=== PATIENT | female | born 1995 | race Caucasian/White ===

== ENCOUNTER 2019-03-01 03:44 | Inpatient (IN) ==
[2019-03-01] MEDS ORDERED: *HR* Nalbuphine 10 MG/ML AMPUL IVP PRN (04:17)
[2019-03-01] MEDS ORDERED: Famotidine 20 MG/2 ML VIAL IVP PRN (04:17)
[2019-03-01] MEDS ORDERED: Naloxone 0.4 MG/ML INJ IVP PRN (04:17)
[2019-03-01] MEDS ORDERED: Lidocaine 1% 20 ML MDV INFILT PRN (04:17)
[2019-03-01] MEDS ORDERED: Metoclopramide 10 MG/2 ML VIAL IVP PRN (04:17)
[2019-03-01] MEDS ORDERED: Penicillin G Potassium 5,000,000 UNIT in 0.9 % Sodium Chloride Mini Bag 100 ML IVPB ONE (04:23)
[2019-03-01] MEDS ORDERED: Ringers Solution, Lactated 1,000 ML ONE ×4 (04:34→23:19)
[2019-03-01 04:46] LABS: Basophils # 0.1 K/mcL (0.0-0.2); Basophils % 0.9 %; Eosinophils # 0.1 K/mcL (0.0-0.6); Eosinophils % 1.1 %; Hematocrit 39.4 % (35.3-44.9); Hemoglobin 13.5 g/dL (11.5-15.4); Immature Granulocytes % 0.6 % (0-4); Lymphocytes # 1.7 K/mcL (0.6-4.6); Mean Corpuscular HGB Conc 34.3 g/dL (31.6-35.5); Mean Corpuscular Hemoglobin 29.6 pg (28.0-33.3); Mean Corpuscular Volume 86.4 fL (83.0-100.0); Monocytes # 0.8 K/mcL (0.0-1.3); Monocytes % 10.8 %; Neutrophils # 4.3 K/mcL (1.6-8.9); Platelet Count 221 K/mcL (140-400); Red Blood Count 4.56 M/mcL (3.82-4.97); Red Cell Distribution Width 13.1 % (11.5-14.5); Segmented Neutrophils % 61.6 %
[2019-03-01 04:53] LABS: Amphetamine Screen,Urine Negative ng/mL (Cutoff=1000); Barbiturate Screen,Urine Negative ng/mL (Cutoff=200); Benzodiazepines Screen,Urine Negative ng/mL (Cutoff=200); Cannabinoid Screen,Urine Negative ng/mL (Cutoff = 50); Cocaine Screen,Urine Negative ng/mL (Cutoff= 300); Opiate Screen,Urine Negative ng/mL (Cutoff=300); Phencyclidine Screen,Urine Negative ng/mL (Cutoff=25)
[2019-03-01] MEDS: miSOPROStoL 100 MCG TABLET PO SCH ×2 (06:06→11:02)
[2019-03-01] MEDS ORDERED: D5% in 0.45% NACL 1,000 ML IVC SCH (06:30)
[2019-03-01] MEDS: Penicillin G Potassium 2,500,000 UNIT in 0.9 % Sodium Chloride 100 ML IVPB SCH ×4 (09:02→21:40)
[2019-03-01] MEDS ORDERED: Acetaminophen 325 MG TABLET PO PRN (13:23)
[2019-03-01] MEDS ORDERED: Oxytocin 20 units/ LR 1000 mL 20 UNIT/1,000 ML BAG IVC SCH (15:00)
[2019-03-01] MEDS ORDERED: Epidural Premix (fent/bupiv) 110 ML EP ONE (19:22)
[2019-03-01] MEDS ORDERED: Epidural Premix (fent/bupiv) 110 ML EP SCH (19:30)
[2019-03-02] MEDS ORDERED: ceFAZolin 2,000 MG in 0.9 % Sodium Chloride 100 ML IVP ONE (00:08)
[2019-03-02] MEDS ORDERED: MetroNIDAZOLE 500 MG/100 ML 500 MG/100 ML BAG IVPB ONE (00:09)
[2019-03-02] MEDS ORDERED: Ondansetron 4 MG/2 ML VIAL IVP PRN ×3 (00:11→04:52)
[2019-03-02] MEDS ORDERED: Ibuprofen 600 MG TABLET PO PRN (00:11)
[2019-03-02] MEDS ORDERED: *HR* OxyCODONE Immed Rel 5 MG TABLET PO PRN (00:11)
[2019-03-02] MEDS ORDERED: Sennosides 8.6 MG TABLET PO PRN (00:11)
[2019-03-02] MEDS ORDERED: Simethicone 80 MG TAB.CHEW PO PRN ×2 (00:11→04:52)
[2019-03-02] MEDS ORDERED: Oxytocin 20 units/ LR 1000 mL 20 UNIT/1,000 ML BAG IVC SCH ×2 (00:15→04:52)
[2019-03-02] MEDS ORDERED: Naloxone 0.4 MG/ML INJ IVP PRN (00:36)
[2019-03-02] MEDS ORDERED: *HR* OxyCODONE/APAP 5/325 TABLET PO PRN (00:36)
[2019-03-02] MEDS ORDERED: Acetaminophen IV 1,000 MG/100 ML INFUS..BTL IVPB ONE (00:37)
[2019-03-02] MEDS ORDERED: Ringers Solution, Lactated 1,000 ML ONE ×3 (00:40→01:47)
[2019-03-02] MEDS ORDERED: Lidocaine/EPI 1:200k 2% PF 20 ML VIAL ONE (00:47)
[2019-03-02] MEDS ORDERED: Ondansetron 4 MG/2 ML VIAL ONE (00:57)
[2019-03-02] MEDS ORDERED: *HR* Oxytocin 10 UNIT/ML VIAL IM ONE ×2 (00:57→01:47)
[2019-03-02] MEDS ORDERED: Dexamethasone 4 MG/ML VIAL ONE (00:57)
[2019-03-02] MEDS ORDERED: Ketorolac 30 MG/ML VIAL ONE (00:57)
[2019-03-02] MEDS ORDERED: *HR* FentaNYL (PF) 100 MCG/2 ML VIAL ONE (01:01)
[2019-03-02] MEDS ORDERED: *HR* Succinylcholine 200 MG/10 ML VIAL IVP ONE (01:09)
[2019-03-02] MEDS ORDERED: Propofol 500 MG/50 ML INFUS..BTL ONE (01:15)
[2019-03-02] MEDS ORDERED: *HR* HYDROmorphone (PF) 1 MG/ML SYRINGE IVP PRN (01:22)
[2019-03-02] MEDS ORDERED: *HR* Morphine Sulfate/PF 10 MG/10 ML AMPUL ONE (01:39)
[2019-03-02] MEDS ORDERED: Rho Immune Globulin 1,500 UNIT SYRINGE IM ONE (04:52)
[2019-03-02] MEDS: Ibuprofen 600 MG TABLET PO SCH ×3 (05:30→20:05)
[2019-03-02] MEDS: Acetaminophen 325 MG TABLET PO SCH ×3 (05:30→20:04)
[2019-03-02] MEDS: metroNIDAZOLE 500 MG TABLET PO SCH ×2 (08:46→20:06)
[2019-03-02] MEDS: cephALEXin 500 MG CAPSULE PO SCH ×2 (08:47→20:06)
[2019-03-02] MEDS: Prenatal Vit/FA 1 EACH TABLET PO SCH (08:47)
[2019-03-02] MEDS ORDERED: Prenatal Vit/FA 1 EACH TABLET PO SCH (09:00)
[2019-03-02] MEDS ORDERED: metroNIDAZOLE 500 MG TABLET PO SCH (09:00)
[2019-03-02] MEDS ORDERED: cephALEXin 500 MG CAPSULE PO SCH (09:00)
[2019-03-03] MEDS: Acetaminophen 325 MG TABLET PO SCH ×2 (02:54→08:56)
[2019-03-03] MEDS: Ibuprofen 600 MG TABLET PO SCH ×2 (02:55→08:55)
[2019-03-03 08:18] VITALS: BP 111/81
[2019-03-03] MEDS: cephALEXin 500 MG CAPSULE PO SCH (08:55)
[2019-03-03] MEDS: metroNIDAZOLE 500 MG TABLET PO SCH (08:55)
[2019-03-03] MEDS: Prenatal Vit/FA 1 EACH TABLET PO SCH (08:56)
== END 2019-03-03 15:00 | disposition home or self-care (01) | DRG 788 ==
LOC: 1NENULAB 03:44 → 1NENUOBS 03-02 04:52
PROVIDERS: ADMIT Obstetrics & Gynecology; ATTEND Obstetrics & Gynecology

== ENCOUNTER 2021-08-23 04:54 | Inpatient (IN) ==
[2021-08-23] MEDS ORDERED: Famotidine 20 MG/2 ML VIAL IVP ONE (06:00)
[2021-08-23] MEDS ORDERED: CeFAZolin Syr 3,000MG/30 ML 3,000 MG/30 ML SYRINGE IVPB ONE (06:00)
[2021-08-23] MEDS ORDERED: Oxytocin 30 UNIT/503 ML BAG IVC SCH ×2 (06:00→09:00)
[2021-08-23] MEDS ORDERED: Metoclopramide 10 MG/2 ML VIAL IVP ONE (06:00)
[2021-08-23 06:24] LABS: Basophils # 0.1 K/mcL (0.0-0.2); Basophils % 0.8 %; Eosinophils # 0.1 K/mcL (0.0-0.6); Eosinophils % 1.5 %; Hematocrit 36.3 % (35.3-44.9); Hemoglobin 11.8 g/dL (11.5-15.4); Immature Granulocytes % 0.7 % (0-4); Lymphocytes # 1.9 K/mcL (0.6-4.6); Lymphocytes % 30.4 %; Mean Corpuscular HGB Conc 32.5 g/dL (31.6-35.5); Mean Corpuscular Hemoglobin 26.3 pg (28.0-33.3); Mean Corpuscular Volume 80.8 fL (83.0-100.0); Mean Platelet Volume 9.9 fL (9.4-12.4); Monocytes # 0.7 K/mcL (0.0-1.3); Monocytes % 11.1 %; Neutrophils # 3.4 K/mcL (1.6-8.9); Platelet Count 216 K/mcL (140-400); Red Blood Count 4.49 M/mcL (3.82-4.97); Red Cell Distribution Width 13.8 % (11.5-14.5); Segmented Neutrophils % 55.5 %; White Blood Count 6.2 K/mcL (4.3-11.1)
[2021-08-23] MEDS: Ringers Solution, Lactated 1,000 ML IVC ONE ×2 (06:55→07:35)
[2021-08-23] MEDS ORDERED: *HR* FentaNYL (PF) 100 MCG/2 ML VIAL ONE (07:17)
[2021-08-23] MEDS ORDERED: *HR* Morphine Sulfate/PF 10 MG/10 ML AMPUL ONE (07:17)
[2021-08-23] MEDS ORDERED: Acetaminophen IV 1,000 MG/100 ML BAG IVPB ONE (07:18)
[2021-08-23] MEDS ORDERED: Azithromycin 500 MG in 0.9 % Sodium Chloride 250 ML IVPB ONE (07:18)
[2021-08-23] MEDS ORDERED: Ringers Solution, Lactated 1,000 ML ONE (07:29)
[2021-08-23] MEDS ORDERED: Ondansetron 4 MG/2 ML VIAL ONE (07:51)
[2021-08-23] MEDS ORDERED: Naloxone 0.4 MG/ML INJ IVP PRN (08:50)
[2021-08-23] MEDS ORDERED: Simethicone 80 MG TAB.CHEW PO PRN (08:50)
[2021-08-23] MEDS ORDERED: Ondansetron 4 MG/2 ML VIAL IVP PRN (08:50)
[2021-08-23] MEDS ORDERED: *HR* OxyCODONE Immed Rel 5 MG TABLET PO PRN (08:50)
[2021-08-23] MEDS ORDERED: Ketorolac 30 MG/ML VIAL ONE (08:50)
[2021-08-23] MEDS: Acetaminophen 325 MG TABLET PO SCH ×3 (09:00→21:25)
[2021-08-23] MEDS: Ibuprofen 600 MG TABLET PO SCH ×3 (14:36→21:25)
[2021-08-23] MEDS: Prenatal Vit/FA 1 EACH TABLET PO SCH (14:37)
[2021-08-23 20:21] VITALS: O2SAT 95
[2021-08-24] MEDS: Ibuprofen 600 MG TABLET PO SCH ×2 (04:22→12:57)
[2021-08-24] MEDS: Acetaminophen 325 MG TABLET PO SCH ×3 (04:22→12:57)
[2021-08-24 05:57] LABS: Basophils # 0.1 K/mcL (0.0-0.2); Basophils % 0.6 %; Eosinophils # 0.1 K/mcL (0.0-0.6); Eosinophils % 0.6 %; Hematocrit 37.3 % (35.3-44.9); Immature Granulocytes % 0.6 % (0-4); Lymphocytes # 1.2 K/mcL (0.6-4.6); Lymphocytes % 10.5 %; Mean Corpuscular HGB Conc 32.2 g/dL (31.6-35.5); Mean Corpuscular Volume 80.7 fL (83.0-100.0); Mean Platelet Volume 9.3 fL (9.4-12.4); Monocytes # 0.8 K/mcL (0.0-1.3); Monocytes % 6.8 %; Neutrophils # 9.2 K/mcL (1.6-8.9); Platelet Count 187 K/mcL (140-400); Red Blood Count 4.62 M/mcL (3.82-4.97); Red Cell Distribution Width 13.8 % (11.5-14.5); Segmented Neutrophils % 80.9 %
[2021-08-24 06:00] LABS: White Blood Count 11.4 K/mcL (4.3-11.1)
[2021-08-24 07:22] VITALS: BP 105/62; PULSE 80; TEMP 98.5
[2021-08-24] MEDS: Prenatal Vit/FA 1 EACH TABLET PO SCH (08:50)
== END 2021-08-24 19:30 | disposition home or self-care (01) | DRG 788 ==
LOC: 1NENULAB 04:54 → 1NENUOBS 11:19
PROVIDERS: ADMIT Obstetrics & Gynecology; ATTEND Obstetrics & Gynecology